=== PATIENT | female | born 1935 | race Caucasian/White ===

== ENCOUNTER 2021-03-31 15:24 | Inpatient (IN) ==
[2021-03-31 16:58] LABS: Amorphous Sediment,Urine Few per hpf (None-Few); Bacteria,Urine Few per hpf (None-Few); Bilirubin,Urine Negative (Negative); Blood,Urine Moderate (Negative); Clarity,Urine Ex.Turbid (Clear); Color,Urine Light-Yellow (Yellow); Glucose,Urine (UA) Normal (Normal); Ketones,Urine Negative (Negative); Leukocyte Esterase,Urine Large (Negative); Mucus,Urine Few per lpf (None-Few); Nitrite,Urine Negative (Negative); Protein,Urine Trace mg/dL (Neg-Trace); Renal Epithelial Cells,Urine Few per hpf (None-Few); Specific Gravity,Urine < 1.005 (1.010-1.025); Squamous Epithelial Cell,Urine Many per hpf (None-Few); Transitional Epi Cells,Urine Few per hpf (None-Few); Urobilinogen,Urine Normal (Normal); WBC,Urine TNTC per hpf (0-3)
[2021-03-31] MEDS ORDERED: cefTRIAXone 1,000 MG in 0.9 % Sodium Chloride Mini Bag 100 ML IVPB ONE (17:06)
[2021-03-31 17:38] LABS: Basophils % 0.6 %; Eosinophils # 0.3 K/mcL (0.0-0.6); Eosinophils % 4.2 %; Hematocrit 42.7 % (35.3-44.9); Hemoglobin 13.4 g/dL (11.5-15.4); Immature Granulocytes % 0.4 % (0-4); Lymphocytes # 1.5 K/mcL (0.6-4.6); Lymphocytes % 22.1 %; Mean Corpuscular HGB Conc 31.4 g/dL (31.6-35.5); Mean Corpuscular Volume 79.5 fL (83.0-100.0); Monocytes # 0.7 K/mcL (0.0-1.3); Monocytes % 10.5 %; Neutrophils # 4.3 K/mcL (1.6-8.9); Platelet Count 174 K/mcL (140-400); Red Blood Count 5.37 M/mcL (3.82-4.97); Red Cell Distribution Width 14.8 % (11.5-14.5); Segmented Neutrophils % 62.2 %; White Blood Count 6.9 K/mcL (4.3-11.1)
[2021-03-31 17:54] LABS: Alanine Aminotransferase 13 Units/L (7-52); Albumin 3.5 g/dL (3.5-5.7); Albumin/Globulin Ratio 0.9 (1.1-2.2); Alkaline Phosphatase 79 Units/L (34-104); Aspartate Amino Transferase 20 Units/L (13-39); BUN/Creatinine Ratio 16 (6-26); Blood Urea Nitrogen 12 mg/dL (8-23); Calcium 9.8 mg/dL (8.6-10.3); Carbon Dioxide 26 mEq/L (23-29); Chloride 104 mEq/L (98-107); Globulin 3.7 g/dL (2.4-3.5); Glucose 154 mg/dL (70-105); Osmolality,Calculated 283 (280-300); Potassium 3.7 mEq/L (3.5-5.1); Sodium 135 mEq/L (136-145); Total Protein 7.2 g/dL (6.4-8.9); Troponin I < 0.03 ng/mL (< 0.04); eGFR For African Americans > 60 (> 60); eGFR For Non-African Americans > 60 (> 60)
[2021-03-31] MEDS ORDERED: Ondansetron ODT 4 MG TAB.RAPDIS SL PRN (19:58)
[2021-03-31] MEDS ORDERED: Naloxone 0.4 MG/ML INJ IVP PRN (19:58)
[2021-03-31] MEDS ORDERED: Melatonin 3 MG TABLET PO PRN (19:58)
[2021-03-31] MEDS: carvediloL 25 MG TABLET PO SCH (21:27)
[2021-03-31] MEDS: 0.9 % Sodium Chloride 1,000 ML IVC SCH (21:28)
[2021-03-31 22:27] LABS: Basophils # 0.1 K/mcL (0.0-0.2); Basophils % 0.6 %; Eosinophils # 0.3 K/mcL (0.0-0.6); Eosinophils % 3.3 %; Hematocrit 46.4 % (35.3-44.9); Hemoglobin 14.5 g/dL (11.5-15.4); Immature Granulocytes % 0.3 % (0-4); Lymphocytes # 1.5 K/mcL (0.6-4.6); Lymphocytes % 17.3 %; Mean Corpuscular HGB Conc 31.3 g/dL (31.6-35.5); Mean Corpuscular Hemoglobin 24.8 pg (28.0-33.3); Mean Corpuscular Volume 79.3 fL (83.0-100.0); Mean Platelet Volume 11.1 fL (9.4-12.4); Monocytes # 0.9 K/mcL (0.0-1.3); Monocytes % 10.2 %; Neutrophils # 5.9 K/mcL (1.6-8.9); Platelet Count 175 K/mcL (140-400); Red Blood Count 5.85 M/mcL (3.82-4.97); Red Cell Distribution Width 14.7 % (11.5-14.5); Segmented Neutrophils % 68.3 %; White Blood Count 8.7 K/mcL (4.3-11.1)
[2021-03-31] MEDS ORDERED: Acetaminophen 325 MG TABLET PO ONE (23:18)
[2021-04-01 03:47] LABS: BUN/Creatinine Ratio 16 (6-26); Blood Urea Nitrogen 13 mg/dL (8-23); Calcium 9.3 mg/dL (8.6-10.3); Carbon Dioxide 26 mEq/L (23-29); Chloride 109 mEq/L (98-107); Glucose 109 mg/dL (70-105); Magnesium 1.7 mg/dL (1.6-2.6); Osmolality,Calculated 287 (280-300); Potassium 3.7 mEq/L (3.5-5.1); Sodium 138 mEq/L (136-145); eGFR For African Americans > 60 (> 60); eGFR For Non-African Americans > 60 (> 60)
[2021-04-01] MEDS: carvediloL 25 MG TABLET PO SCH ×2 (09:17→17:01)
[2021-04-01] MEDS: cefTRIAXone 1,000 MG in 0.9 % Sodium Chloride Mini Bag 100 ML IVPB SCH (17:01)
[2021-04-01] MEDS: *HR* Heparin 5,000 UNIT/ML VIAL SQ SCH (17:22)
[2021-04-02] MEDS: 0.9 % Sodium Chloride 1,000 ML IVC SCH (03:08)
[2021-04-02] MEDS: *HR* Heparin 5,000 UNIT/ML VIAL SQ SCH ×2 (06:23→17:51)
[2021-04-02] MEDS: carvediloL 25 MG TABLET PO SCH ×2 (07:39→17:51)
[2021-04-02] MEDS ORDERED: Aspirin 325 MG TABLET PO ONE (09:10)
[2021-04-02 13:07] LABS: INR 2.1; Prothrombin Time 23.6 Seconds (9.4-12.1)
[2021-04-02] MEDS: amLODIPine 5 MG TABLET PO SCH (13:31)
[2021-04-02] MEDS: cefTRIAXone 1,000 MG in 0.9 % Sodium Chloride Mini Bag 100 ML IVPB SCH (17:52)
[2021-04-02] MEDS ORDERED: *HR* Warfarin 3 MG TABLET PO ONE (18:00)
[2021-04-02] MEDS ORDERED: Warfarin perPT PO PRN (18:00)
[2021-04-03] MEDS: *HR* Heparin 5,000 UNIT/ML VIAL SQ SCH ×2 (06:12→17:21)
[2021-04-03 07:43] LABS: INR 2.1; Prothrombin Time 23.3 Seconds (9.4-12.1)
[2021-04-03] MEDS: Aspirin Enteric Coated 81 MG Tablet PO SCH (09:34)
[2021-04-03] MEDS: amLODIPine 5 MG TABLET PO SCH (09:34)
[2021-04-03] MEDS: carvediloL 25 MG TABLET PO SCH ×2 (10:41→17:21)
[2021-04-03] MEDS ORDERED: *HR* Warfarin 3 MG TABLET PO ONE (18:00)
[2021-04-03] MEDS ORDERED: Acetaminophen 325 MG TABLET PO PRN (18:02)
[2021-04-04 02:44] LABS: INR 2.2; Prothrombin Time 24.3 Seconds (9.4-12.1)
[2021-04-04] MEDS: *HR* Heparin 5,000 UNIT/ML VIAL SQ SCH (06:00)
[2021-04-04] MEDS: Aspirin Enteric Coated 81 MG Tablet PO SCH (08:28)
[2021-04-04] MEDS: carvediloL 25 MG TABLET PO SCH ×2 (08:28→18:17)
[2021-04-04] MEDS: amLODIPine 5 MG TABLET PO SCH (08:28)
[2021-04-04 15:06] LABS: Amorphous Sediment,Urine Few per hpf (None-Few); Bilirubin,Urine Negative (Negative); Blood,Urine Trace (Negative); Clarity,Urine Turbid (Clear); Color,Urine Yellow (Yellow); Glucose,Urine (UA) 50 mg/dL (Normal); Hyaline Casts,Urine Few per lpf (None Seen); Ketones,Urine Negative (Negative); Leukocyte Esterase,Urine Negative (Negative); Mucus,Urine Few per lpf (None-Few); Nitrite,Urine Negative (Negative); Protein,Urine 30 mg/dL (Neg-Trace); RBC,Urine 0-3 per hpf (0-3); Specific Gravity,Urine 1.014 (1.010-1.025); Squamous Epithelial Cell,Urine Few per hpf (None-Few); Urobilinogen,Urine Normal (Normal)
[2021-04-04] MEDS ORDERED: *HR* Warfarin 3 MG TABLET PO ONE (18:00)
[2021-04-05 07:22] LABS: INR 2.2
[2021-04-05 08:14] LABS: Basophils # 0.1 K/mcL (0.0-0.2); Eosinophils # 0.4 K/mcL (0.0-0.6); Eosinophils % 4.9 %; Hematocrit 41.2 % (35.3-44.9); Immature Granulocytes % 0.2 % (0-4); Lymphocytes % 23.6 %; Mean Corpuscular HGB Conc 31.6 g/dL (31.6-35.5); Mean Corpuscular Volume 79.1 fL (83.0-100.0); Mean Platelet Volume 11.9 fL (9.4-12.4); Monocytes # 1.1 K/mcL (0.0-1.3); Monocytes % 12.5 %; Neutrophils # 4.9 K/mcL (1.6-8.9); Platelet Count 198 K/mcL (140-400); Red Blood Count 5.21 M/mcL (3.82-4.97); Red Cell Distribution Width 15.3 % (11.5-14.5); Segmented Neutrophils % 57.8 %; White Blood Count 8.4 K/mcL (4.3-11.1)
[2021-04-05 09:35] LABS: BUN/Creatinine Ratio 17 (6-26); Blood Urea Nitrogen 14 mg/dL (8-23); Calcium 9.3 mg/dL (8.6-10.3); Carbon Dioxide 24 mEq/L (23-29); Chloride 106 mEq/L (98-107); Glucose 97 mg/dL (70-105); Magnesium 1.7 mg/dL (1.6-2.6); Osmolality,Calculated 282 (280-300); Phosphorous 3.7 mg/dL (2.7-4.5); Potassium 3.7 mEq/L (3.5-5.1); Sodium 136 mEq/L (136-145); eGFR For African Americans > 60 (> 60); eGFR For Non-African Americans > 60 (> 60)
[2021-04-05] MEDS: Aspirin Enteric Coated 81 MG Tablet PO SCH (09:51)
[2021-04-05] MEDS: amLODIPine 5 MG TABLET PO SCH (09:52)
[2021-04-05] MEDS: cephALEXin 500 MG CAPSULE PO SCH ×3 (09:52→21:04)
[2021-04-05] MEDS: carvediloL 25 MG TABLET PO SCH ×2 (09:56→19:51)
[2021-04-05] MEDS ORDERED: *HR* Warfarin 2.5 MG TABLET PO ONE (18:00)
[2021-04-06 05:52] LABS: INR 2.2; Prothrombin Time 24.6 Seconds (9.4-12.1)
[2021-04-06] MEDS: Aspirin Enteric Coated 81 MG Tablet PO SCH (08:32)
[2021-04-06] MEDS: cephALEXin 500 MG CAPSULE PO SCH ×3 (08:32→20:29)
[2021-04-06] MEDS: carvediloL 25 MG TABLET PO SCH ×2 (08:32→18:26)
[2021-04-06] MEDS: amLODIPine 5 MG TABLET PO SCH (08:32)
[2021-04-06 16:07] VITALS: BP 148/79; PULSE 68; TEMP 97.6; O2SAT 98
[2021-04-06 16:23] LABS: Influenza A PCR Negative (Negative); Influenza B PCR Negative (Negative); Resp. Syncytial Virus PCR Negative (Negative); SARS-CoV-2 by PCR (In House) Negative (Negative)
[2021-04-06] MEDS ORDERED: *HR* Warfarin 2.5 MG TABLET PO ONE (18:00)
== END 2021-04-06 22:34 | DRG 690 ==
LOC: EMEROOARM 15:24 → 3BNU 15:24 → SUATTDRO 20:09 → 3BNU 20:56 → SUATTDRO 04-01 10:27
PROVIDERS: ADMIT Internal Medicine; ATTEND Internal Medicine